=== PATIENT | female | born 1945 | race Caucasian/White ===

== ENCOUNTER → 2024-04-23 08:34 | Outpatient (REF) | payer MEDICARE, SELFPAY | LOC: PAVMRI 08:34 | PROVIDERS: ATTENDING PHYSICIAN Internal Medicine Cardiovascular Disease; FAMILY PHYSICIAN Internal Medicine | DX: I49.8 Other specified cardiac arrhythmias (principal) | CPT/HCPCS: 75561; 75565; A9585 ==

== ENCOUNTER → 2024-06-18 12:44 | Outpatient (REF) | payer MEDICARE, SELFPAY | LOC: RSP 12:44 | PROVIDERS: FAMILY PHYSICIAN Internal Medicine | DX: R06.02 Shortness of breath (principal) | CPT/HCPCS: 94727; 94729; 94060 ==

== ENCOUNTER → 2025-06-14 12:31 | Outpatient (REF) | payer MEDICARE, SELFPAY | LOC: PAVMRI 12:31 | PROVIDERS: ATTENDING PHYSICIAN Student in an Organized Health Care Education/Training Program; FAMILY PHYSICIAN Internal Medicine | DX: M70.61 Trochanteric bursitis, right hip (principal) | CPT/HCPCS: 73721 ==